=== PATIENT | female | born 1950 | race Two or more races ===

== ENCOUNTER 2019-04-17 12:29 | Emergency (ER) | payer OTHER ==
[~2019-04-17] VITALS: Ht 165.1 cm; Wt 70.3 kg
[2019-04-17] MEDS ORDERED: LOSARTAN POTASS25 MG (12:37)
[2019-04-17] MEDS ORDERED: METOPROLOL TART25 MG (12:37)
== END 2019-04-17 14:27 | disposition home or self-care (01) ==
LOC: ER 12:29
DX: S10.83XA Contusion of other specified part of neck, initial encounter (principal); S30.0XXA Contusion of lower back and pelvis, initial encounter; W18.39XA Other fall on same level, initial encounter; Y93.89 Activity, other specified; Y92.238 Other place in hospital as the place of occurrence of the external cause; Y99.8 Other external cause status

== ENCOUNTER 2020-04-18 06:00 | Day surgery (SDC) | payer OTHER ==
[~2020-04-18 06:00] MED LIST: LOSARTAN POTASS25 MG; METOPROLOL TART25 MG
[2020-04-18] MEDS ORDERED: AMOX1TAB5 PO (08:29)
== END 2020-04-18 10:45 | disposition home or self-care (01) ==
LOC: AMB-ENDOS 06:00
PROVIDERS: ATTEND Surgery
DX: D13.1 Benign neoplasm of stomach (principal); D13.2 Benign neoplasm of duodenum; Z20.828 Contact with and (suspected) exposure to other viral communicable diseases; K44.9 Diaphragmatic hernia without obstruction or gangrene; K62.89 Other specified diseases of anus and rectum